=== PATIENT | male | born 1960 | race Caucasian/White ===

== ENCOUNTER 2016-11-19 15:07 | Emergency (ER) ==
[2016-11-19 15:15] VITALS: BP 124/70; TEMP 97.8; BMI 32.2
[2016-11-19] MEDS ORDERED: LIDOCAINE 1 % AMP 5 ML (SUTURES) SUBCUT STA (15:29)
[2016-11-19] MEDS ORDERED: LIDOCAINE 1 % AMP 5 ML (SUTURES) ONE (15:31)
--- NOTE | 2016-11-19 15:39 | ED.PDOC ---
General ED Provider: Dr. SHAN HAY JR Chief Complaint: Laceration Stated Complaint: PATIENT STATES THAT HE WAS HANGING A. LIGHT BULB WHEN A METAL END FELL AND. CUT HIS RIGHT UPPER ARM. [ End ]97.8 68 18 124/70 7/10 Time Seen by Physician: 15:33 Mode of Arrival: Walk-In Information Source: Patient Exam Limitations: No limitations Nursing and Triage Documentation Reviewed and Agree: No Review of Systems - Review Of Systems Constitutional: Reports: No symptoms Eyes: Reports: No symptoms Ears, Nose, Mouth, Throat: Reports: No symptoms Respiratory: Reports: No symptoms Cardiac: Reports: No symptoms, Other (diaphoretic(working outside)) GI: Reports: No symptoms : Reports: No symptoms Musculoskeletal: Reports: Muscle pain Skin: Reports: Lesions Neurological: Reports: No symptoms Endocrine: Reports: No symptoms Hematologic/Lymphatic: Reports: No symptoms All Other Systems: Other Past Medical History - Past Medical History Previously Healthy: No Endocrine: Reports: Dyslipidemia Cardiovascular: Reports: CAD Respiratory: Reports: None Hematological: Reports: None Gastrointestinal: Reports: None Genitourinary: Reports: Kidney stones Neuro/Psych: Reports: None Musculoskeletal: Reports: Arthritis Cancer: Reports: None - Surgical History General Surgical History: Reports: Tonsillectomy, Adenoidectomy, CABG ( QUADRUPLE BYPASS 2014) - Family History Family History: Reports: Unknown - Social History Smoking Status: Former smoker Hx Substance Use: No Alcohol Screening: None - Immunizations Tetanus Shot up to Date: No Physical Exam - Physical Exam Appearance: Well-appearing Neck: Supple Respiratory: Airway patent Skin: Warm, Diaphoretic Procedures - Laceration/Wound Repair No standard instances Wound Description: Irregular, Flap Wound Length (cm): 8.5 Wound Explored: Clean, Contaminated (few pieces of particulate debris cleansed) Wound Irrigated: Yes Wound Prep: Saline, Hibiclens Anesthesia: Lidocaine Wound Repaired With: Sutures Suture Size and Type: 4-0 prolene Number of Sutures: 1 Layer Closure?: No Critical Care Note - Critical Care Note Total Time (mins): 0 Course - Course Orders, Labs, Meds: Orders Category Date Time Status Lidocaine HCl/Pf [Lidocaine 1 % Amp 5 ml (Sutures)] MEDS 11/19/16 15:31 Discontinued 5 ml .ROUTE .STK-MED ONE Lidocaine HCl/Pf [Lidocaine 1 % Amp 5 ml (Sutures)] MEDS 11/19/16 15:29 Discontinued 5 ml SUBCUT ONCE STA Medications Discontinued Medications Generic Name Dose Route Start Last Admin Trade Name Vandana PRN Reason Stop Dose Admin Lidocaine HCl 5 ml 11/19/16 15:29 11/19/16 15:51 Lidocaine 1 % Amp 5 Ml (Sutures) SUBCUT 11/19/16 15:30 Not Given ONCE STA Vital Signs: Temp Pulse Resp BP Pulse Ox 11/19/16 15:08 97.8 F 68 18 124/70 95 Departure - Departure Time of Disposition: 16:09 Disposition: HOME SELF-CARE Discharge Problem: Laceration - injury Instructions: Laceration (ED), Care For Your Stitches (ED) Condition: Good Pt referred to PMD for follow-up: Yes Additional Instructions: sutures out in one week daily dressing change may use antibiotic ointment Tylenol for pain return if bleeds through bandage more than three times in one day Prescriptions: Bacitracin 1 applic TP 2-4XD #1 pkg Allergies/Adverse Reactions: Allergies No Known Allergies Allergy (Unverified 11/19/16 15:12) Home Medications: Ambulatory Orders Aspirin [Lo-Dose Aspirin EC] 81 mg PO DAILY 11/19/16 Atorvastatin Calcium 20 mg PO DAILY 11/19/16 Bacitracin 1 applic TP 2-4XD #1 pkg 11/19/16 Metoprolol Succinate 25 mg PO DAILY 11/19/16 Omeprazole [Prilosec] 20 mg PO DAILY 11/19/16 Tamsulosin HCl [Flomax] 0.4 mg PO DAILY 11/19/16
== END 2016-11-19 16:33 | disposition home or self-care (01) ==
LOC: ED 15:07
DX: S41.111A Laceration without foreign body of right upper arm, initial encounter (principal); W20.8XXA Other cause of strike by thrown, projected or falling object, initial encounter
CPT/HCPCS: 96372; 99284